=== PATIENT | female | born 1995 | race Two or more races ===

== ENCOUNTER 2018-09-11 16:42 | Emergency (ER) | payer OTHER ==
[~2018-09-11] VITALS: Ht 165.1 cm; Wt 92.0 kg
[2018-09-11 16:44] VITALS: BP 126/99
== END 2018-09-11 17:21 | disposition home or self-care (01) ==
LOC: ED 17:18
DX: H10.023 Other mucopurulent conjunctivitis, bilateral (principal); B30.9 Viral conjunctivitis, unspecified; F17.200 Nicotine dependence, unspecified, uncomplicated
CPT/HCPCS: 99283

== ENCOUNTER 2020-08-24 17:13 | Emergency (ER) | payer OTHER ==
[~2020-08-24] VITALS: Ht 165.1 cm; Wt 105.9 kg
[2020-08-24 17:20] VITALS: BP 153/93
--- NOTE | 2020-08-24 17:23 | NUR ---
PT PT PLACED BACK IN LOBBY IN .
--- NOTE | 2020-08-24 17:53 | NUR ---
RESERVE OPERATOR: PT TO ROOM FROM LOBBY VIA W/C
--- NOTE | 2020-08-24 18:58 | NUR ---
DR. RUSSELL TO ROOM AND SPOKE WITH PT. PT TO HAVE AN AIR SPLINT TO RIGHT LOWER LEG AND CRUTCH TRAINING.
--- NOTE | 2020-08-24 19:25 | NUR ---
CRUTCH AND SPLINT EDUCATION DONE. SPLINT PLACED. F/U AND D/C INSTRUCTIONS GIVEN TO PT AND THEY V/U.
--- NOTE | 2020-08-24 19:51 | NUR ---
AIR SPLINT PLACED TO RIGHT ANKLE. AND CRUTCH TRAINING COMPLETED BY BREAD STACKER. PT V/U. PT GIVEN F/U AND D/C INSTRUCTIONS AND THEY V/U. PT AMBULATED WITH CRUTCHES TO DISCHARGE DESK.
== END 2020-08-24 19:53 | disposition home or self-care (01) ==
LOC: ED 19:45
DX: S93.431A Sprain of tibiofibular ligament of right ankle, initial encounter (principal); Z88.5 Allergy status to narcotic agent; X50.0XXA Overexertion from strenuous movement or load, initial encounter; Y93.89 Activity, other specified; Y92.89 Other specified places as the place of occurrence of the external cause; Y99.8 Other external cause status
CPT/HCPCS: 99284